=== PATIENT | female | born 1965 | race Caucasian/White ===

== ENCOUNTER 2019-02-12 06:01 | Day surgery (SDC) | payer OTHER ==
[~2019-02-12 06:01] MED LIST: COZAAR25 MG PO; METOPROLOL SUCC50 MG PO; SINGULAIR10 MG PO; SYMBICORT 16010.2 GM IH; ZYRTEC PO
== END 2019-02-12 15:20 | disposition home or self-care (01) ==
LOC: CIR.AMB 06:01
PROVIDERS: Plastic Surgery; Surgery
PROC: 0HBV0ZZ Excision of Bilateral Breast, Open Approach (ICD-10-PCS; 2019-02-12)
PROC: 0HBT0ZZ Excision of Right Breast, Open Approach (ICD-10-PCS; principal; 2019-02-12 13:45)
PROC: 07B50ZZ Excision of Right Axillary Lymphatic, Open Approach (ICD-10-PCS; 2019-02-12 13:45)
DX: C50.411 Malignant neoplasm of upper-outer quadrant of right female breast (principal); N62 Hypertrophy of breast

== ENCOUNTER 2019-09-02 06:24 | Day surgery (SDC) | payer OTHER ==
[~2019-09-02 06:24] MED LIST changes: +ALL DAY ALLERGY10 M3 PO; +TAMOXIFEN CITRA20 MG PO
[2019-09-02] MEDS ORDERED: Tylenol #3 PO (12:17)
[2019-09-02] MEDS ORDERED: AMOX1TAB5 PO (12:17)
== END 2019-09-02 16:05 | disposition home or self-care (01) ==
LOC: CIR.AMB 06:24
DX: D25.0 Submucous leiomyoma of uterus (principal); N84.0 Polyp of corpus uteri; N72 Inflammatory disease of cervix uteri